=== PATIENT | female | born 1960 | race Caucasian/White ===

== ENCOUNTER 2018-06-28 10:05 | Emergency (ER) | payer MEDICAID ==
[~2018-06-28] VITALS: Ht 154.9 cm; Wt 72.1 kg
[2018-06-28 10:09] VITALS: BP 146/82; Ht 154.9 cm; Wt 72.1 kg
== END 2018-06-28 11:27 | disposition home or self-care (01) ==
LOC: ED 10:05
DX: R21 Rash and other nonspecific skin eruption (principal); Z90.09 Acquired absence of other part of head and neck; I10 Essential (primary) hypertension

== ENCOUNTER 2020-08-24 16:41 | Emergency (ER) | payer OTHER ==
[~2020-08-24] VITALS: Ht 157.5 cm; Wt 75.3 kg
[2020-08-24 16:54] VITALS: Ht 157.5 cm; Wt 75.3 kg
[2020-08-24 20:05] VITALS: BP 136/59
== END 2020-08-24 20:05 | disposition home or self-care (01) ==
LOC: ED 16:41
DX: R51.9 Headache, unspecified (principal); M54.2 Cervicalgia; I10 Essential (primary) hypertension; Z98.890 Other specified postprocedural states
CPT/HCPCS: J1200; J2765